=== PATIENT | male | born 1995 | race Caucasian/White ===

== ENCOUNTER 2019-08-23 17:58 | Emergency (ER) | payer BC, MEDICAID, OTHER, SELFPAY ==
[~2019-08-23] VITALS: Ht 170.2 cm; Wt 92.6 kg
[2019-08-23] MEDS ORDERED: NS 1,000 ML IV SCH (19:18)
--- NOTE | 2019-08-23 19:25 | ECGEPIP ---
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
[2019-08-23] MEDS ORDERED: ASPIRIN 81 MG CHEW TABLET PO ONE (19:30)
--- NOTE | 2019-08-23 19:53 | REP ---
CHEST PA AND LATERAL: 08/23/2019. Clinical history: Chest pain. Findings: No prior study. Two-view show the lung hughes well inflated. CP angles are sharply defined without effusion, infiltrate, lateral pleural thickening or apical pneumothorax. There is no atelectasis. The heart, mediastinal and hilar contours are normal. Aorta and airway are intact. The bony thorax shows no compression deformity or other focal bone lesion. No free air under the diaphragm. Impression: 1. No acute cardiopulmonary disease. Electronically Signed by Camacho Bui MD 08/23/2019 07:44 P
[2019-08-23 19:57] LABS: BASO % 0.3 % (0.0-1.0); EOS # 0.1 10^3/uL (0.0-0.5); EOS % 1.2 % (0.0-3.0); HEMATOCRIT 41.9 % (42.0-52.0); HEMOGLOBIN 14.4 g/dl (13.5-17.5); LYMPH # 2.1 10^3/uL (1.5-5.0); LYMPH % 31.5 % (24.0-44.0); MEAN CORPUSCULAR HEMOGLOBIN 30.5 pg (27.0-33.0); MEAN CORPUSCULAR HGB CONC 34.4 g/dl (32.0-36.5); MEAN CORPUSCULAR VOLUME 88.8 fl (80.0-96.0); MONO # 0.6 10^3/uL (0.0-0.8); MONO % 8.2 % (0.0-5.0); NEUTROPHILS # 3.9 10^3/uL (1.5-8.5); NEUTROPHILS % 58.5 % (36.0-66.0); PLATELET COUNT, AUTOMATED 233 10^3/uL (150-450); RED BLOOD COUNT 4.72 10^6/uL (4.30-6.10); WHITE BLOOD COUNT 6.7 10^3/uL (4.0-10.0)
[2019-08-23 20:19] LABS: BLOOD UREA NITROGEN 12 MG/DL (7-18); CALCIUM LEVEL 8.8 MG/DL (8.5-10.1); CARBON DIOXIDE LEVEL 27 MEQ/L (21-32); CHLORIDE LEVEL 106 MEQ/L (98-107); CK-MB VALUE MASS < 1.0 NG/ML (<3.6); CPK CREATINE PHOSPHOKINASE 254 U/L (39-308); CREATININE FOR GFR 0.99 MG/DL (0.70-1.30); GLOMERULAR FILTRATION RATE > 60.0 (>60); GLUCOSE, FASTING 95 MG/DL (70-100); MB/CK RELATIVE INDEX 0.39 (< OR =4); POTASSIUM SERUM 4.3 MEQ/L (3.5-5.1); SODIUM LEVEL 140 MEQ/L (136-145); TROPONIN I < 0.02 NG/ML (< 0.10)
[2019-08-23 20:56] VITALS: BP 108/66
== END 2019-08-23 20:59 | disposition home or self-care (01) ==
LOC: M ED 17:58
DX: R07.89 Other chest pain (principal); I45.89 Other specified conduction disorders; Z72.0 Tobacco use; Z88.1 Allergy status to other antibiotic agents

== ENCOUNTER 2019-08-27 16:59 | Emergency (ER) | payer MEDICAID ==
[~2019-08-27] VITALS: Ht 170.2 cm; Wt 91.1 kg
[2019-08-27] MEDS ORDERED: diphenhydrAMINE 50MG/ML VIAL (J1200) IV STA (17:42)
[2019-08-27] MEDS ORDERED: NS 1,000 ML IV ONE (17:45)
[2019-08-27] MEDS ORDERED: METOCLOPRAMIDE INJ 10MG/2ML VIAL (J2765 PER 1) IV ONE (17:45)
[2019-08-27] MEDS ORDERED: KETOROLAC 30 MG/ML 1ML VIAL IV ONE (17:45)
[2019-08-27 18:11] LABS: BASO % 0.1 % (0.0-1.0); EOS # 0.2 10^3/uL (0.0-0.5); EOS % 2.1 % (0.0-3.0); HEMATOCRIT 42.6 % (42.0-52.0); HEMOGLOBIN 14.6 g/dl (13.5-17.5); LYMPH % 23.4 % (24.0-44.0); MEAN CORPUSCULAR HEMOGLOBIN 30.1 pg (27.0-33.0); MEAN CORPUSCULAR HGB CONC 34.3 g/dl (32.0-36.5); MEAN CORPUSCULAR VOLUME 87.8 fl (80.0-96.0); MONO # 0.6 10^3/uL (0.0-0.8); MONO % 7.3 % (0.0-5.0); NEUTROPHILS # 5.8 10^3/uL (1.5-8.5); NEUTROPHILS % 66.8 % (36.0-66.0); PLATELET COUNT, AUTOMATED 241 10^3/uL (150-450); RED BLOOD COUNT 4.85 10^6/uL (4.30-6.10); WHITE BLOOD COUNT 8.7 10^3/uL (4.0-10.0)
[2019-08-27] MEDS ORDERED: FIORCAP3 PO (20:31)
[2019-08-27 20:40] VITALS: BP 125/76
--- NOTE | 2019-08-28 09:42 | REP ---
REASON: Headache. Preliminary report was given by [facility] at the time the exam was performed. There are no priors for comparison. TECHNIQUE: 4.5 mm contiguous transaxial sections were obtained from the skull base to the cerebral convexities with thin cuts through the posterior fossa without the administration of intravenous contrast. FINDINGS: The ventricles and sulci are consistent with the patient's age. There are no extra-axial fluid collections. There is no mass effect. The deep cerebral white matter is consistent with the patient's age. The orbital and petrous structures, cerebellopontine angles, and posterior fossa are unremarkable. The sella turcica, cavernous, and paracavernous structures are essentially unremarkable. The visualized portions of the paranasal sinuses and mastoid air cells are clear. Images of the skull base show no gross abnormality. IMPRESSION: Essentially unremarkable CT examination of the brain. Electronically Signed by Wes Vargas DO 08/28/2019 11:26 A
== END 2019-08-27 20:45 | disposition home or self-care (01) ==
LOC: M ED 16:59
DX: R51 Headache (principal); Z72.0 Tobacco use; Z88.1 Allergy status to other antibiotic agents
CPT/HCPCS: 70450; 80047; 83735; 85025; 96361; 96374; 96375; 99284; J1200; J1885; J2765

== ENCOUNTER 2019-11-04 11:11 | Emergency (ER) | payer MEDICAID, OTHER ==
[~2019-11-04] VITALS: Ht 172.7 cm; Wt 90.5 kg
[~2019-11-04 11:11] MED LIST: FIORCAP3 PO
[2019-11-04] MEDS ORDERED: ESCI10TA2 (11:33)
[2019-11-04] MEDS ORDERED: CLINDAMYCIN 900 MG in IV 1 EA IV ONE (12:00)
[2019-11-04] MEDS ORDERED: KETOROLAC 30 MG/ML 1ML VIAL IV ONE (12:00)
[2019-11-04 12:26] LABS: BASO % 0.1 % (0.0-1.0); EOS # 0.1 10^3/uL (0.0-0.5); EOS % 0.7 % (0.0-3.0); HEMATOCRIT 43.2 % (42.0-52.0); HEMOGLOBIN 14.8 g/dl (13.5-17.5); LYMPH # 1.7 10^3/uL (1.5-5.0); LYMPH % 19.9 % (24.0-44.0); MEAN CORPUSCULAR HEMOGLOBIN 30.7 pg (27.0-33.0); MEAN CORPUSCULAR HGB CONC 34.3 g/dl (32.0-36.5); MEAN CORPUSCULAR VOLUME 89.6 fl (80.0-96.0); MONO # 0.7 10^3/uL (0.0-0.8); MONO % 8.2 % (0.0-5.0); NEUTROPHILS # 6.1 10^3/uL (1.5-8.5); NEUTROPHILS % 70.9 % (36.0-66.0); PLATELET COUNT, AUTOMATED 228 10^3/uL (150-450); RED BLOOD COUNT 4.82 10^6/uL (4.30-6.10); WHITE BLOOD COUNT 8.6 10^3/uL (4.0-10.0)
[2019-11-04 12:50] LABS: BLOOD UREA NITROGEN 13 MG/DL (7-18); CALCIUM LEVEL 9.2 MG/DL (8.5-10.1); CARBON DIOXIDE LEVEL 27 MEQ/L (21-32); CHLORIDE LEVEL 106 MEQ/L (98-107); CREATININE FOR GFR 0.96 MG/DL (0.70-1.30); GLOMERULAR FILTRATION RATE > 60.0 (>60); GLUCOSE, FASTING 88 MG/DL (70-100); SODIUM LEVEL 139 MEQ/L (136-145)
[2019-11-04] MEDS ORDERED: CLEO300C2 PO (13:18)
[2019-11-04 13:29] VITALS: BP 119/72
== END 2019-11-04 13:31 | disposition home or self-care (01) ==
LOC: M ED 11:11
DX: L03.116 Cellulitis of left lower limb (principal); F41.9 Anxiety disorder, unspecified; F32.9 Major depressive disorder, single episode, unspecified; F17.200 Nicotine dependence, unspecified, uncomplicated
CPT/HCPCS: 36415; 80048; 85025; 87040; 96365; 96375; 99284; J1885

== ENCOUNTER 2019-12-02 01:12 | Emergency (ER) | payer OTHER ==
[~2019-12-02] VITALS: Ht 172.7 cm; Wt 97.0 kg
[~2019-12-02 01:12] MED LIST changes: +CLEO300C2 PO; +ESCI10TA2
[2019-12-02 02:29] VITALS: BP 122/59
[2019-12-02] MEDS ORDERED: OLOPATADINE 0.1% OPHTH SOL 5ML(PATANOL) OU ONE (02:45)
== END 2019-12-02 03:20 | disposition home or self-care (01) ==
LOC: M ED 01:12
DX: H10.11 Acute atopic conjunctivitis, right eye (principal); H15.89 Other disorders of sclera; F17.200 Nicotine dependence, unspecified, uncomplicated; Z88.1 Allergy status to other antibiotic agents

== ENCOUNTER → 2023-02-12 | Outpatient (CLI) | payer OTHER ==
[~2023-02-12] MED LIST changes: +ESCI10TA16; -ESCI10TA2
== END ==
LOC: M RAD 11:08
PROVIDERS: ATTEND Physician Assistant
DX: N45.1 Epididymitis (principal)